=== PATIENT | male | born 1970 | race Caucasian/White ===

== ENCOUNTER 2024-04-19 07:59 | Emergency (ER) | payer BC, SELFPAY ==
[2024-04-19 08:01] VITALS: BP 185/106
--- NOTE | 2024-04-19 08:12 | ED.GENMED ---
History of Present Illness
General
Chief Complaint: Fall
Source: patient
Exam Limitations: none
Time Seen by Provider: 04/19/24 08:08
History of Present Illness
History of Present Illness:
See MDM
Past History
Past History
ED Past Medical History: None
ED Past Surgical History: None
Social History
Personal:
Living: with family
Employment: Employed
Phy Exam
Physical Exam
Physical Exam:
See MDM
Course
Orders/Labs/Results
Orders:
Orders
04/19/24 08:05
CT Cervical Spine W/o Iv Contr Urgent
Comment:
Reason For Exam: wednesday lateral neck discomfort with stiffne
CT Head W/o Iv Contrast Urgent
Comment:
Reason For Exam: fell wednesday c/o TIMMONS denies loc
04/19/24 08:11
Cyclobenzaprine HCl [Flexeril] 10 mg PO NOW STA
Ketorolac [Toradol] 30 mg IM NOW STA
Vital Signs
Initial and Last Documented VS:
Initial Vital Signs
Temp Pulse Resp BP Pulse Ox
99.1 F 79 16 185/106 98
04/19/24 08:01 04/19/24 08:01 04/19/24 08:01 04/19/24 08:01 04/19/24 08:01
Last Documented Vital Signs
Temp Pulse Resp BP Pulse Ox
99.1 F 79 16 185/106 98
04/19/24 08:01 04/19/24 08:01 04/19/24 08:01 04/19/24 08:01 04/19/24 08:01
MDM/Problems Addressed
Differential Diagnosis Includes:
HPI and MDM Narrative:
53-year-old male presenting for evaluation of neck pain and headache. Patient states he was roughhousing with his friends Wednesday night. Since then, he has been dealing with posterior neck pain. He denies numbness or tingling or anterior neck
pain. Motrin is offering very minimal relief. Due to the ongoing pain, he came to the department.
Patient ambulating without difficulty. On exam, he has posterior bilateral paracervical muscular spasm. No significant midline tenderness. No anterior neck pain or tenderness to palpation of carotids. No obvious focal neurodeficits on exam.
Given ongoing symptoms, will obtain CT neck and CT head. However, discussed likely diagnosis of muscle strain and spasm. Will give dose of Flexeril and Toradol
Physical exam
General: Mildly uncomfortable, ambulated without difficulty
HEENT: protecting airway
Neck: Posterior paracervical muscle spasm.
CV: No evidence of cyanosis
Resp: No accessory muscle use
Abd: Non-distended
Extremities: No deformities
Neuro: alert
Psych: Normal affect
Skin: Intact
Problems Addressed including Acute and Chronic Conditions affecting care:
1. Cervical muscle strain/spasm
Acuity: acute
Prognosis: stable
Details: Will give dose of Flexeril and Toradol. Will obtain CT given persistent symptoms
Updates
CT head and neck negative for acute pathology. Patient feeling mildly better and feels comfortable going home
Differential Diagnosis (but not limited to): Muscle strain, cervical fracture, tension headache
Testing considered: Cervical x-ray
Drug therapy (if applicable): OTC meds, please see d/c instruction regarding Rx drugs
Amount and/or Complexity of Data Reviewed
Clinical info obtained from: Patient
External data reviewed: N/A
Labs I independently reviewed (but not limited to): N/A
Radiology: The CT scan was personally and independently reviewed. In addition, official CT report reviewed.
Pulse Ox: not hypoxic
EKG independently reviewed: N/A
Employment Office Clerk: N/A
Critical Care: N/A
Risk of Complication:
Social Determinants of health: Good social support
Discussed with other providers: N/A
Escalation of Care includes Admit/Obs: After being observed in the Emergency Department, pt stable for discharge.
Occasional wrong word or 'sound a like' substitutions may have occurred due to the inherent limitations of voice recognition software. Read the chart carefully and recognize, using context, where substitutions have occurred.
*Critical Care Note
Total Time (30-74mins, 75-104mins- exclusive of procedures): Not Applicable
ED Attending Note
-
Portions of this chart may have been created with voice recognition software.� Occasional wrong word or��sound alike� substitutions may have occurred due to the inherent limitations of voice recognition software.
Discharge Plan
Departure
Patient Disposition: Home (Routine Discharge)
Date of Disposition: 04/19/24
Time of Disposition: 09:05
Patient with high blood pressure during this ER visit?: Yes
Discharge Problem:
Cervical muscle strain
Instructions: Cervical Sprain ED, BLOOD PRESSURE
Prescriptions:
New
diclofenac potassium 50 mg tablet
50 mg PO BID Qty: 20 0RF
oxycodone 5 mg tablet
5 mg PO Q8H PRN (Reason: Pain) Qty: 7 0RF
metaxalone 800 mg tablet
800 mg PO TID PRN (Reason: muscle pain) Qty: 14 0RF
Activity Restrictions/Additional Instructions:
Please return for any worsening symptoms.
You may return at any time if you have further concerns.
Please follow up with your doctor at the first available appointment, preferably this week.
You were given a prescription for narcotics. If you require this pain medicine, please take a daily [id number] stool softener to avoid constipation.
Thank you for choosing [facility].
Interventions
Interventions:
*Risk Screen - Suicide Last Done: 04/19/24 08:01
*Neglect/Abuse Screening Last Done: 04/19/24 08:01
ED-Musculoskeletal Assessment Last Done: 04/19/24 08:25
ED- Neurological Assessment Last Done: 04/19/24 08:25
Discharge Date and Time
Print Language: [id number]
[2024-04-19] MEDS: FLEXERIL 10 MG PO (08:22)
[2024-04-19] MEDS: TORADOL 30 MG IM (08:22)
== END 2024-04-19 10:00 | disposition home or self-care (01) ==
LOC: EMR 07:59
PROVIDERS: EMERGENCY PHYSICIAN Student in an Organized Health Care Education/Training Program; FAMILY PHYSICIAN Nurse Practitioner Family
DX: S16.1XXA Strain of muscle, fascia and tendon at neck level, initial encounter (principal); W19.XXXA Unspecified fall, initial encounter; R03.0 Elevated blood-pressure reading, without diagnosis of hypertension
CPT/HCPCS: 99284; 96372; 70450; 72125